=== PATIENT | male | born 1995 | race Caucasian/White ===

== ENCOUNTER 2025-06-07 08:30 | Outpatient (RCR) | payer OTHER, BC, SELFPAY ==
--- NOTE | 2025-05-17 16:18 | HP.PTEVAL ---
Patient's Visit Information Visit Information Visit Information: FARRUKH FRY is a 29 year old M referred to Physical Therapy by EDELMIRA GUERRA with a diagnosis of R shoulder strain. Date of Evaluation: 05/17/25 Physical Therapist: Colin Nix DPT Visit Plan Frequency: 2-3x /Week Duration: 4 Weeks Plan: 1) mid trap, serratus anterior, rhomboid strengthening 2) functional strengthening with lifting over head. Subjective Subjective: Pt. is here today for his initial evaluation with R strain at shoulder and upper arm. Pt. reports hurting his arm on 02/17 while at work. He was lifting parts up and off machine and felt intense pain in his R shoulder (into shoulder blade position). Pt. reports his symptoms are better, but not gone. Pt. reports 2-3/10 pain in her R shoulder blade region. Pt. reports increased symptoms with getting up out of bed. Pt. reports no N/T. Pt. has been out on paternity leave since injury. He has not done any exercises for it yet. He has been heating his shoulder to reduce symptoms, both with hot shower and heat pad. RTW date is 06/06/25. Pt. is hopeful to reduce pain to allow for full recover prior to returning to work. Pain R shoulder blade: Pain Intensity (Out of 10): 2 Pain Intensity Range: 1 and 3 Objective Objective: POSTURE: Pt. does have signs of surgical correction of throacic scoliosis. He does have increased posterior positioned R thoracic ribs. PALPATION: no pain with all palpation throughout R shoulder NEURO: Normal throughout. ROM: R shoulder: full motion without increase in symptoms. No pain with over pressures. MMT: Pt. has good strength throuhgout RTC and deltoid bilaterally. R serratus anterior 4/5, R mid trap 4/5, R rhomboids 4/5. No pain with testing. Special Tests R Shoulder Empty Can - SS: Negative R Shoulder Belly Press - SupScap: Negative R Shoulder Neer - Impingement: Negative R Shoulder Chambers Jose J - Impingement: Negative R Shoulder Speeds Test - Labrum/Biceps: Negative Balance/Special Test Scores Quick DASH Score: 11.3625 Goals Goal 1:: LTG: pt. to be I with HEP. Goal Time Frame: 4-6 Weeks Goal 2:: LTG: Pt. to have full strength throuhgout rhomboids, mid trap, serratus anterior of R shoulder. Goal Time Frame: 4-6 Weeks Goal 3:: LTG: pt. to be able to lift 15# over head x10 simulating work activities without limitations. Goal Time Frame: 4-6 Weeks Goal 4:: LTG: Pt. to reports no pain with all ADLs Goal Time Frame: 4-6 Weeks Rehabilitation Potential Physical Therapy Diagnosis: Pt. has signs and symptoms consistent with R shoulder strain. Pt. has some weakness with his scapular and periscapular musculature. Pt. would benefit from PT to address the above limitations progressing back to all work activities without limitations. Rehabilitation Potential: Excellent Anticipated Interventions Patient/Client Instruction: Educate patient on: Condition, Plan of Care, Risk Factors and Benefits of Fitness Program For the Purpose of:: To improve decision making, To facilitate caregiver knowledge, To improve self management, To prevent re-injury and To improve ability to perform tasks related to life management Therapeutic Exercise to Include: Strength training, Power training, Endurance training, Passive ROM and Active ROM For the Purpose of:: To decrease pain, To increase ROM, To increase oxygenation perfusion, To improve muscle performance and motor function and To improve ability to perform ADL's Text: Thank you for the opportunity to evaluate your patient. For Medicare and Medicare HMO plans, please review the plan of care and approve it. It will need to be FAXED BACK to us at [phone] for Medicare purposes. For Medicare only, by signing this I certify the plan of care. Please let me know if there are questions or concerns regarding this plan of care. Physician Signature: Date:
--- NOTE | 2025-06-07 08:46 | HP.PTDCSUM ---
Discharge Summary D/C summary: It has been my pleasure to treat MEIR FRY referred by EDELMIRA GUERRA, with the diagnosis of R shoulder strain for a total of 10 visit(s). Discharge Date: 06/07/25 Please see the following information for a summary of their discharge status. Subjective Subjective: Pt. reports no pain currently. 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 He does report some soreness with this, but feels like he just need to get back into the routine. Pt. reports being 90% better overall. Pain R shoulder blade: Pain Intensity (Out of 10): 0 Overall Improvement % Improvement: 90 Objective Objective/Function: Full motion without increase in symptoms. OH press 15# x10 no issues. MMT: R shoulder: flex 31.3#, abd 28.9#, H abd 28.8#, rhomboid 24.4# L shoulder: flex 26#, abd 32.6#, H abd 27.7#, rhomboid 22.5# Overall Meir is doing well no issues. He has some fatigue with resuming work activities, but overall not much pain. Pt. to fillow up with physician after this visit. Goals Goal 1:: LTG: pt. to be I with HEP. Goal Progress: Goal Met Goal 2:: LTG: Pt. to have full strength throuhgout rhomboids, mid trap, serratus anterior of R shoulder. Goal Progress: Goal Met Goal 3:: LTG: pt. to be able to lift 15# over head x10 simulating work activities without limitations. Goal Progress: Goal Met Goal 4:: LTG: Pt. to reports no pain with all ADLs Goal Progress: Goal Met Plan Plan: Pt. is overall doing well. I am DCing him back to physician at this point in time. He has met all goals. He is back to work with some discomfort and fatigue but not much., D/C Information d/c sentence: If there are questions or concerns regarding this patient's physical therapy, please feel free to call me at [phone]. Thank you for the referral of this patient. Sincerely, Colin Smith Sipos, DPT Balance/Gait/Functional tests Balance/Special Test Scores Quick DASH Score: 2.2725 Improvement % Improvement: 90
== END 2025-06-07 19:00 | disposition home or self-care (01) ==
LOC: PT 08:30
DX: S46.911D Strain of unspecified muscle, fascia and tendon at shoulder and upper arm level, right arm, subsequent encounter (principal)
CPT/HCPCS: 97110; 97161; 97530